=== PATIENT | male | born 2000 | race Caucasian/White ===

== ENCOUNTER 2020-11-30 15:43 | Emergency (ER) | payer OTHER, SELFPAY ==
[2020-11-30 16:02] VITALS: BP 153/79; PULSE 69; RESP 16; TEMP 36.6; O2SAT 100
--- NOTE | 2020-11-30 16:14 | ED.PEDHENT ---
HPI - Pediatric HENT General Chief complaint: Dental/Oral Stated complaint: Tooth Pain Source: patient and RN notes reviewed Limitations: no limitations History of Present Illness HPI Narrative: The patient, mostly healthy non-smoking / occ drinking student, presents with sore throat. Patient states he has nearly weeklong history of sore throat, especially on the right. No fever, CP, loss of taste/smell, shortness of breath, cough, earache. Symptoms are mild, worse upon eating, associated with mild lymphadenopathy/neck pain that is causing referred pain that he is concerned might be his teeth. No hoarseness, trismus, visible swelling. Related Data Allergies Allergy/AdvReac Type Severity Reaction Status Date / Time No Known Allergies Allergy Verified 11/30/20 16:13 Pediatric Review of Systems : Review of Systems: General/Constitutional: No weight loss,fever Eyes: N0: Redness,discharge Ears/Nose/Throat: No: Epistaxis,ear discharge Respiratory: Denies: Hemoptysis Gastrointestinal: No Vomiting, Bleeding-rectal Skin: No Lumps, eruption Neurologic: No Focal Weakness,Sz Hematologic: Denies: Petechiae/Purpura Psychiatric: No: Suicida ideationl All Other Systems: Reviewed and Negative PMFSH Social History Social History Gender identity (if verbalized by the patient): Male Comments At time of signature, agree with nursing past medical, surgical, social and family history. There is no relevant family history pertinent to the presenting complaint Pediatric Exam Narrative: Physical exam: General Appearance: Well appearing, Well nourished EYE: PERRLA, Conjunctiva clear Ears: Auditory canal normal, TM normal Nose: Rhinorrhea, Mucousal erythema Mouth/Throat: MM moist, Uvula midline, Pharyngeal erythema ,exudate, and tonsil stone. Neck: Supple, ++adenopathy Respiratory: No respiratory distress, Breath sounds equal, Clear to auscultation Cardiovascular: RRR, No JVD Musculoskeletal: Non tender, Normal strength Skin: Warm, Dry Neurological: A&O x3, CN II-XII intact Psychiatric: Normal mood, Normal affect Course Vital Signs Vital signs: Vital Signs Temperature 97.9 F 11/30/20 16:02 Pulse Rate 69 11/30/20 16:02 Respiratory Rate 16 11/30/20 16:02 Blood Pressure 153/79 H 11/30/20 16:02 Pulse Oximetry 100 11/30/20 16:02 Temperature 97.9 F 11/30/20 16:02 Pulse Rate 69 11/30/20 16:02 Respiratory Rate 16 11/30/20 16:02 Blood Pressure 153/79 H 11/30/20 16:02 Pulse Oximetry 100 11/30/20 16:02 Medical Decision Making Vital Signs Vital Signs: Vital Signs Temperature 97.9 F 11/30/20 16:02 Pulse Rate 69 11/30/20 16:02 Respiratory Rate 16 11/30/20 16:02 Blood Pressure 153/79 H 11/30/20 16:02 Pulse Oximetry 100 11/30/20 16:02 Temperature 97.9 F 11/30/20 16:02 Pulse Rate 69 11/30/20 16:02 Respiratory Rate 16 11/30/20 16:02 Blood Pressure 153/79 H 11/30/20 16:02 Pulse Oximetry 100 11/30/20 16:02 Lab Data Labs: Lab Results 11/30/20 Range/Units 16:09 POC SARS CoV-2 Ag Pending Strep Screen Positive Group A Strep *(Reference Range: Negative)* Discharge Plan Discharge Clinical Impression: Pharyngitis, acute Qualifiers: Pharyngitis/tonsillitis etiology: streptococcus Qualified Code(s): J02.0 - Streptococcal pharyngitis Patient Disposition: Home, Self-Care Condition: Stable Instructions: Antibiotic Form, Strep Throat (ED) Prescriptions: New Lidocaine Viscous 2 % solution 5 ml MUCOUS MEM QID PRN (Reason: pain) Qty: 100 RF: 1 amoxicillin-pot clavulanate [Augmentin] 500-125 mg tablet 1 tablet PO Q12H Qty: 20 RF: 0 Follow-up/Referrals: [place] MD [Primary Care Provider] - Stand Alone Forms: Work/School Release IP
== END 2020-11-30 16:22 | disposition home or self-care (01) ==
PROVIDERS: Emergency Provider Emergency Medicine; PCP Family Medicine
DX: J02.0 Streptococcal pharyngitis (principal); Z20.822 Contact with and (suspected) exposure to COVID-19
CPT/HCPCS: 87426; 87880; 99213; C9803; G0463

== ENCOUNTER 2023-09-08 14:18 | Emergency (ER) | payer OTHER, SELFPAY ==
[2023-09-08 14:21] VITALS: BP 126/78; PULSE 106; RESP 18; TEMP 38.8; O2SAT 100
[2023-09-08 15:16] LABS: Influenza A QL RT-PCR Positive (Negative); Influenza B QL RT-PCR Negative (Negative); RSV RNA, RT-PCR Negative (Negative); SARS-CoV-2 RNA PCR Negative (Negative)
--- NOTE | 2023-09-08 15:16 | ED.GENADULT ---
[facility] General Adult General Chief complaint: Upper Respiratory Infection Stated complaint: cough, congestion. Time Seen by Provider: 09/08/23 14:32 Source: patient Mode of arrival: ambulatory Limitations: no limitations History of Present Illness HPI narrative: This is a 23-year-old male who presents to the ED with chief complaint of flu-like symptoms for the past 2 days. Reports cough, body aches, congestion. Reports fevers as well. Has not taken any medications today. He is also requesting evaluation for his 3rd right toe, hit it on concrete a couple of days ago. denies any further complaint. Related Data Allergies Allergy/AdvReac Type Severity Reaction Status Date / Time No Known Allergies Allergy Verified 11/30/20 16:13 Review of Systems Review of Systems: All systems as dictated in [facility] Social History Social History Gender identity (if verbalized by the patient): Male Exam Narrative: GENERAL: Well-appearing, well-nourished, and in no acute distress. HEAD: Normocephalic, atraumatic. EYES: PERRLA and EOMI. ENT: Nares clear, no rhinorrhea or epistaxis. Mucous membranes moist. Oropharynx without tonsillar hypertrophy exudate or other lesions. NECK: Supple. No adenopathy or masses. CHEST: No respiratory distress. Clear to auscultation. No wheezes rales or rhonchi HEART: Regular rate and rhythm. No murmur heard. Normal peripheral pulses. ABDOMEN: Soft, nontender, nondistended, normal active bowel sounds. MSK: Normal range of motion. No edema. SKIN: Warm, dry, no rash. NEURO: Alert and oriented x3. No focal deficits. PSYCH: Normal mood and affect. Course Vital Signs Vital signs: Vital Signs Temperature 101.8 F H 09/08/23 14:21 Pulse Rate 106 H 09/08/23 14:21 Respiratory Rate 18 09/08/23 14:21 Blood Pressure 126/78 09/08/23 14:21 Pulse Oximetry 100 09/08/23 14:21 Oxygen Delivery Room Air 09/08/23 14:21 Temperature 101.8 F H 09/08/23 14:21 Pulse Rate 106 H 09/08/23 14:21 Respiratory Rate 18 09/08/23 14:21 Blood Pressure 126/78 09/08/23 14:21 Pulse Oximetry 100 09/08/23 14:21 Oxygen Delivery Room Air 09/08/23 14:21 Medical Decision Making MDM Narrative Medical decision making narrative: This is a 23-year-old male who presents to the ED with chief complaint of flu-like symptoms. Vitals show very slight tachycardia and elevated temperature of 101.8? F. exam shows posterior oropharynx erythema but otherwise benign. additional concerns of some toe pain. No significant bruising or tenderness. he declines XRs. Viral swabs are positive for influenza A. Symptoms consistent with viral syndrome. Pt will be discharged in stable condition. Return precautions given and supportive measures discussed. Pt is understanding and agreeable with plan for discharge and follow-up with PCP. Vital Signs Vital Signs: Vital Signs Temperature 101.8 F H 09/08/23 14:21 Pulse Rate 106 H 09/08/23 14:21 Respiratory Rate 18 09/08/23 14:21 Blood Pressure 126/78 09/08/23 14:21 Pulse Oximetry 100 09/08/23 14:21 Oxygen Delivery Room Air 09/08/23 14:21 Temperature 101.8 F H 09/08/23 14:21 Pulse Rate 106 H 09/08/23 14:21 Respiratory Rate 18 09/08/23 14:21 Blood Pressure 126/78 09/08/23 14:21 Pulse Oximetry 100 09/08/23 14:21 Oxygen Delivery Room Air 09/08/23 14:21 Lab Data Labs: Lab Results 09/08/23 Range/Units 14:29 Influenza A (RT-PCR) Positive A (Negative) Influenza B (RT-PCR) Negative (Negative) RSV (RT-PCR) Negative (Negative) SARS-CoV-2 RNA (RT-PCR) Negative (Negative) Discharge Plan Discharge Clinical Impression: Influenza Patient Disposition: Home, Self-Care Condition: Stable Instructions: Antibiotic Form Additional Instructions: Your exam today shows evidence of influenza A. Continue with the maria ines taping for the toe. Rest ice and elevated as
== END 2023-09-08 15:49 | disposition home or self-care (01) ==
LOC: ANHED 15:35
PROVIDERS: Student in an Organized Health Care Education/Training Program; Emergency Provider Physician Assistant
DX: J10.1 Influenza due to other identified influenza virus with other respiratory manifestations (principal); Z20.822 Contact with and (suspected) exposure to COVID-19
CPT/HCPCS: 87637; 99283